=== PATIENT | male | born 1990 | race Two or more races ===

== ENCOUNTER 2024-07-27 08:07 | Emergency (ER) | payer BC, SELFPAY ==
--- OUTSIDE RECORDS SUMMARY | 2024-07-27 08:09 | XMS_ITS | Clinical Summary ---
Author Organization [facility] Address [address] [place] [id number] Care Team Providers Care Combination Machine Tool Setter Name Role Phone Unknown, Notinfile Unavailable Unavailable Hyacinht Hong MD Primary Care Provider Lanette Costa MD Unavailable [phone] Allergies No known active allergies Medications HYDROcodone-acet aminophen (NORCO) 5-325 mg per tabletIndication s:Pain Take 1 tablet by mouth every 8 (eight) hours as needed for pain 12 tablet 02/01/2024 Active Active Problems Problem Noted Date Diagnosed Date Abdominal pain 01/29/2024 Acute pancreatitis 01/29/2024 Social History Tobacco Use Types Packs/Day Years Used Date Smoking Tobacco: Never Smokeless Tobacco: Never Tobacco Cessation:Counseling Given: No C Utilities Answer Date Recorded In the past 12 months has [employer], gas, oil, or water [employer] threatened to shut off services in your home? No 01/30/2024 Social Connection and Isolat ion Panel [NHANES] Answer Date Recorded In a typical week, how many times do you talk on the phone with family, friends, or neighbors? More than three times a week 01/30/2024 How often do you get togethe r with friends or relatives? More than three times a week 01/30/2024 How often do you attend chur ch or oriental orthodox services? Never 01/30/2024 Do you belong to any clubs o r organizations such as jewish groups, unions, fraternal or athletic groups, or school groups? No 01/30/2024 How often do you attend meet ings of the clubs or organizations you belong to? Never 01/30/2024 Are you , , di vorced, , never , or living with a partner? 01/30/2024 Overall Financial Resource Strain (CARDIA) Answe r Date Recorded How hard is it for you to pa y for the very basics like food, housing, medical care, and heating? Not hard at all 01/30/2024 Hunger Vital Sign Answer Date Recorded Within the past 12 months, y ou worried that your food would run out before you got the money to buy more. Never true 01/30/20 24 Within the past 12 months, t he food you bought just didn't last and you didn't have money to get more. Never true 01/30/2024 PRAPARE - Transportation Answer Date Re corded In the past 12 months, has l ack of transportation kept you from medical appointments or from getting medications? No 01/16 In the past 12 months, has l ack of transportation kept you from meetings, work, or from getting things needed for daily living? No 01/30/2024 Housing Stability Vital Sign Answer Austin e Recorded In the last 12 months, was t here a time when you were not able to pay the mortgage or rent on time? No 01/30/2024 In the past 12 months, how m any times have you moved where you were living? 0 01/30/2024 At any time in the past 12 m [facility], were you homeless or living in a jail (including now)? No 01/30/2024 Personal Safety Answer Date Recorded Have you ever been in or are you currently in a harmful physical or emotional relationship or is someone making you feel afraid or unsafe? 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 Gender Identity Male 01/29/2024 11:27 AM CDT Sexual Orientation Not on file Obstetrics History Last Filed Vital Signs Vital Sign Reading Time Taken Comments Blood Pressure 140/77 02/01/2024 7:37 AM CDT Pulse 65 02/01/2024 7:37 AM CDT Temperature 36.4 C (97.5 F) 02/01/2024 7:37 AM CDT Respiratory Rate 20 02/01/2024 7:37 AM CDT Oxygen Saturation 97% 02/01/2024 7:37 AM CDT Inhaled Oxygen Concentration - - Weight 165.6 kg (365 lb 1.3 oz) 02/01/2024 4:34 AM CDT Height 180.3 cm (5' 11 ) 01/29/2024 9:01 PM CDT Body Mass Index 50.92 01/29/2024 9:01 PM CDT Plan of Treatment Health Maintenance Due Date Last Done Comments Depression Screening 1989 Hepatitis C Screening 1989 DTaP/Tdap/Td Vaccine (2 - Tdap) 2000 06/05/1994 Varicella Vaccines (1 of 2 - 13+ 2-dose series) 2002 Hepatitis B Screening 2007 Regular Well Visit/Exam 18-64 2007 Covid-19 Vaccine (3 - 2023-2 5 season) 2024 09/20/2020, 08/29/2020 Influenza Vaccine (#1) 2024 HPV Vaccines Aged Out No longer eligi ble based on patient's age to complete this topic Pneumococcal vaccine <65 Aged Out No longer eligible based on patient's age to complete this topic Insurance [employer] OOS [employer] OOS [employer] ACCESS OOS BLUE ACCESS OOS Advance Directives For more information, please contact: [phone] * Full Code (Latest Code Status on File) Date Activated Date Inactivated Comments 01/29/2024 8:36 PM 02/01/2024 7:35 PM Care Teams Combination Machine Tool Setter Relationship Specialty Start Date End Date Hyacinth Hong MD [address] [address] PCP - General Family Medicine 01/29/24 Unknown, Notinfile 02/06/22 Lanette Costa MD [address] [place] [address] Consulting Physician Gastroenterology 02/01/24
--- OUTSIDE RECORDS SUMMARY | 2024-07-27 08:09 | XMS_ITS | Referral Summary ---
Author Organization [facility] Address [address] [place] [phone] Care Team Providers Care Drencher Name Role Phone Unknown, Notinfile Unavailable Unavailable Hyacinth Hong MD Primary Care Provider Lanette Costa MD Unavailable [phone] Allergies No known active allergies Medications HYDROcodone-acet [...] Recorded In the past 12 months has [employer], gas, oil, or water [employer] threatened to shut off services in your [...] often do you attend chur ch or jehovah's witness services? Never 01/30/2024 Do you belong to any clubs o r organizations such as judaism groups, unions, fraternal or athletic groups, or [...] any time in the past 12 m onths, were you homeless or living in a care home (including now)? No 01/30/2024 Personal Safety Answer Date Recorded Have you ever been in or are you currently in a harmful physical or emotional relationship or is someone making you feel afraid or unsafe? 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 Gender Identity Male 01/29/2024 11:27 AM CDT Sexual Orientation Not on file Last Filed Vital Signs Vital Sign Reading [...] 01/29/2024 9:01 PM CDT Plan of Treatment Not on file Insurance [employer] OOS [employer] OOS [employer] OOS BLUE ACCESS OOS Advance Directives For more information, please contact: [phone] * Full Code (Latest Code Status on File) Date Activated Date Inactivated Comments 01/29/2024 8:36 PM 02/01/2024 7:35 PM Care Teams Drencher Relationship Specialty Start Date End Date Hyacinth Hong MD [address] [place] [address] PCP - General Family Medicine 01/29/24 Unknown, Notinfile 02/06/22 Lanette Costa MD [address] [place] [address] Consulting Physician Gastroenterology 02/01/24
[2024-07-27 08:20] VITALS: BP 119/72; PULSE 77; RESP 18; TEMP 36.4; O2SAT 99
--- NOTE | 2024-07-27 08:27 | ED_ITS ---
HPI - General Adult General Chief complaint: Upper Respiratory Infection Stated complaint: congestion and throat pain Time Seen by Provider: 07/27/24 08:28 Source: patient Mode of arrival: ambulatory Limitations: no limitations History of Present Illness HPI narrative: Ash is a 33-year-old male complains of sore throat for the last 1 and half weeks. He reports multiple sick contacts at home. Reports no diagnosis of flu strep or COVID in home. Reports family is all on antibiotics for their current illness. He complains of congestion sore throat drainage down the back of the throat and a dry cough at times. He denies ear popping, ear pain, nausea, vomiting, diarrhea, headache, and fevers or any other concerns today. All systems reviewed and negative except as noted above. Related Data Home Medications ?Medication ?Instructions ?Recorded ?Confirmed ?Last Taken ?Type omeprazole 20 mg capsule,delayed 20 mg PO DAILY 02/22/24 Unknown History release Allergies Allergy/AdvReac Type Severity Reaction Status Date / Time No Known Allergies Allergy Verified 07/27/24 08:24 Review of Systems Review of Systems: CONSTITUTIONAL: Denies fever, chills, or sweats. EYES: Denies visual changes, redness, or discharge. ENT: reports rhinorrhea, congestion, and sore throat. denies otalgia. CARDIOVASCULAR: Denies chest pain, palpitations, or edema. RESPIRATORY: reports cough. denies dyspnea. GASTROINTESTINAL: Denies abdominal pain, nausea, vomiting, or diarrhea. GENITOURINARY: Denies dysuria or hematuria. SKIN: Denies rash or itching. MUSCULOSKELETAL: Denies back pain, joint pain, or myalgia. NEUROLOGIC: Denies headache, numbness, or weakness. PSYCHIATRIC: Denies anxiety or depression. All other systems reviewed are negative, except as documented in HPI. 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 Discoloration of skin Family History Family History Father Diabetes mellitus Hypertension Social History Social History Social History: Smoking status: Never smoker Second hand tobacco smoke exposure: No Alcohol intake: current Alcohol use details: Occasionally Substance use: never Substance use type: does not use Do You Feel Safe in your Home?: Yes Lack of Transportation: No Lack of Food: Never True Current Housing: I Have Housing Concerned About Future Housing: No Difficulty Paying Gas/Electric Bills: No Difficulty Paying for Meds: No Currently Unemployed: No Education: Don't Know Difficulty w/ Childcare or Family Care: No Living arrangements: with family Occupation/Education: occupation Gender identity (if verbalized by the patient): Male Sexual Orientation (if Verbalized by the Patient): Straight or Heterosexual Spiritual care concerns: No Agree to blood products: Yes Exam Narrative: GENERAL: This is a well-nourished, well-developed patient, in no apparent distress. HEAD: normocephalic, atraumatic. EYES: Sclera clear/white. Vision is grossly intact. EARS: Bilateral EAC erythematous; Right TM erythematous and edematous with visible fluid. Hearing grossly intact. NOSE: External nose normal with no obvious nasal discharge. nares with redness, edema, and rhinorrhea. THROAT: Mucous membranes moist, posterior pharynx erythematous. NECK: Neck supple, non-tender without lymphadenopathy, masses or thyromegaly. CARDIOVASCULAR: Regular rate and rhythm without murmurs, gallops, or rubs. RESPIRATORY: Clear to auscultation. Breath sounds equal bilaterally. No wheezes, rales, or rhonchi. SKIN: warm, Dry, intact with no suspicious lesions or rash, good texture and turgor. NEURO: awake, alert, and oriented to person, place and time. There were no obvious focal neurologic abnormalities. EXTREMITIES: No joint tenderness, effusion, or edema noted. Course Course Emergency Course: Patient is aware of diagnosis, understands and agrees to treatment plan. Anticipatory guidance given. Patient agrees to follow-up as directed and is aware of reasons to seek care at the emergency department. This report may have been done utilizing a voice recognition system. Attempts have been made to correct errors. However, there may be uncorrected grammatical, spelling, and recognition errors present. Level of Care: Express Care Visit Vital Signs Vital signs: Vital Signs Temperature 36.4 C L 07/27/24 08:20 Pulse Rate 77 07/27/24 08:20 Respiratory Rate 18 07/27/24 08:20 Blood Pressure 119/72 07/27/24 08:20 Pulse Oximetry 99 07/27/24 08:20 Oxygen Delivery Room Air 07/27/24 08:20 Temperature 36.4 C L 07/27/24 08:20 Pulse Rate 77 07/27/24 08:20 Respiratory Rate 18 07/27/24 08:20 Blood Pressure 119/72 07/27/24 08:20 Pulse Oximetry 99 07/27/24 08:20 Oxygen Delivery Room Air 07/27/24 08:20 Reviewed. Medical Decision Making MDM Narrative Medical decision making narrative: Patient with history of sore throat x 1.5 weeks. Patient with congestion, sore throat, and cough at times. His strep test was negative today. On exam his right TM was erythematous. Reviewed exam findings with patient. He was diagnosed with right otitis media and treated with antibiotics. He is stable and in no acute distress. advise supportive measures and signs and symptoms to go to the emergency room. Patient is appropriate for outpatient treatment and follow-up. Differential Diagnosis Differential Diagnosis: Strep vs viral pharyngitis vs URI vs ear infection Vital Signs Vital Signs: Vital Signs Temperature 36.4 C L 07/27/24 08:20 Pulse Rate 77 07/27/24 08:20 Respiratory Rate 18 07/27/24 08:20 Blood Pressure 119/72 07/27/24 08:20 Pulse Oximetry 99 07/27/24 08:20 Oxygen Delivery Room Air 07/27/24 08:20 Temperature 36.4 C L 07/27/24 08:20 Pulse Rate 77 07/27/24 08:20 Respiratory Rate 18 07/27/24 08:20 Blood Pressure 119/72 07/27/24 08:20 Pulse Oximetry 99 07/27/24 08:20 Oxygen Delivery Room Air 07/27/24 08:20 Reviewed Lab Data Labs: Lab Results 07/27/24 Range/Units 08:29 POC Grp A Strep Screen Negative (Negative) Discharge Plan Discharge Clinical Impression: Otitis media Qualifiers: Otitis media type: suppurative Chronicity: acute Laterality: right Recurrence: non-recurrent Spontaneous tympanic membrane rupture: without spontaneous rupture Qualified Code(s): H66.001 - Acute suppurative otitis media without spontaneous rupture of ear drum, right ear Upper respiratory infection Qualifiers: URI type: acute pharyngitis Pharyngitis/tonsillitis etiology: unspecified etiology Qualified Code(s): J02.9 - Acute pharyngitis, unspecified Patient Disposition: Home, Self-Care Condition: Stable Instructions: Antibiotic Form, Pharyngitis (ED), Ear Infection (ED) Additional Instructions: You were diagnosed with a right ear infection today and pharyngitis. Follow printed instructions. You may continue your aeuw-fnw-hzsabhi medications for symptoms including Tylenol and ibuprofen as directed on the packaging. Take medications as prescribed. Follow-up with your primary care provider. Patient Language: Mohawk Prescriptions: New amoxicillin-pot clavulanate 875-125 mg tablet 1 tablet PO Q12H Qty: 14 0RF benzonatate 200 mg capsule 200 mg PO TID PRN (Reason: cough) Qty: 30 0RF No Action omeprazole 20 mg capsule,delayed release(DR/EC) 20 mg PO DAILY Follow-up/Referrals: UNKNOWN,DOCTOR [Primary Care Provider] - Time of Disposition: 08:42
[2024-07-27 08:31] LABS: EDSTREPNEGPOS1 Negative (Negative)
== END 2024-07-27 08:56 | disposition home or self-care (01) ==
PROVIDERS: Emergency Provider Nurse Practitioner
DX: H66.001 Acute suppurative otitis media without spontaneous rupture of ear drum, right ear (principal); J02.9 Acute pharyngitis, unspecified; E66.01 Morbid (severe) obesity due to excess calories; E03.9 Hypothyroidism, unspecified; M47.22 Other spondylosis with radiculopathy, cervical region; Z83.3 Family history of diabetes mellitus
CPT/HCPCS: 87081; 87880; 99213; G0463

== ENCOUNTER 2024-11-02 08:46 | Emergency (ER) | payer BC, SELFPAY ==
--- NOTE | 2024-11-02 08:48 | ED_ITS ---
HPI - Ear Problem General Chief complaint: Upper Respiratory Infection Stated complaint: right side mouth and ear pain Time Seen by Provider: 11/02/24 08:48 Source: patient Mode of arrival: ambulatory Limitations: no limitations History of Present Illness HPI Narrative: Ash is a 34-year-old male patient presenting to the clinic today with complaints of right-sided mouth and ear pain x4 days. He reports no fevers, chills, body aches. Denies any runny nose cough or congestion. States that the pain is worse when he swallows and radiates into the right ear. Has had strep exposure last week. Denies any chest pain or shortness of breath. Related Data Home Medications Medication Instructions Recorded Confirmed Last Taken Type pantoprazole 40 mg tablet,delayed mg PO 11/02/24 Unknown History release Allergies Allergy/AdvReac Type Severity Reaction Status Date / Time No Known Allergies Allergy Verified 11/02/24 08:48 Review of Systems Review of Systems: Pertinent positives per HPI. Patient denies any fever, chills, rash, headache, visual changes, dizziness, cough, shortness of breath, chest pain, palpitations, nausea, vomiting, diarrhea, constipation, abdominal pain, or any urinary issues. [facility] Past Medical History Medical History Morbid (severe) obesity due to excess calories FHx: diabetes mellitus Dermatitis Acquired hypothyroidism Cervical spondylosis with radiculopathy Screening cholesterol level Chronic pruritic rash in adult Discoloration of skin Family History Family History Father Diabetes mellitus Hypertension Social History Social History Social History: Smoking status: Never smoker Second hand tobacco smoke exposure: No Alcohol intake: current Alcohol use details: Occasionally Substance use: never Substance use type: does not use Do You Feel Safe in your Home?: Yes Lack of Transportation: No Lack of Food: Never True Current Housing: I Have Housing Concerned About Future Housing: No Difficulty Paying Gas/Electric Bills: No Difficulty Paying for Meds: No Currently Unemployed: No Education: Don't Know Difficulty w/ Childcare or Family Care: No Living arrangements: with family Occupation/Education: occupation Gender identity (if verbalized by the patient): Male Sexual Orientation (if Verbalized by the Patient): Straight or Heterosexual Spiritual care concerns: No Agree to blood products: Yes Comments At the time of my signature, I reviewed and agree with the nursing past medical, surgical, social, and family history. There is no relevant family history pertinent to the patient complaint. Exam Narrative: General: Well-developed, morbidly obese, in no apparent distress Head: Normocephalic, atraumatic Eyes: Pupils equally round and reactive to light bilaterally, EOM intact, sclera and conjunctive clear, no discharge, lids normal Ears: TMs intact and congested, ear canals clear, no drainage, grossly hearing normal. Nose: Nares patent, no discharge, no inflammation, no sinus tenderness. Mouth: Oral pharynx mildly red without lesions or masses, good dentition, MMM. Neck: Supple, trachea midline, no enlargement of anterior or posterior cervical nodes, no thyroid masses or goiter palpable. Cardio: Regular rate and rhythm, s1 and s2 normal, no murmur appreciated. Resp: Clear to auscultation bilaterally, no rhonchi, rales, wheezing or rubs Course Course Emergency Course: Portions of this record may have been created with voice recognition software. Level of Care: Express Care Visit Vital Signs Vital signs: Vital Signs Temperature 36.6 C 11/02/24 08:55 Pulse Rate 99 11/02/24 08:55 Respiratory Rate 18 11/02/24 08:55 Blood Pressure 124/67 11/02/24 08:55 Pulse Oximetry 99 11/02/24 08:55 Oxygen Delivery Room Air 11/02/24 08:55 Temperature 36.6 C 11/02/24 08:55 Pulse Rate 99 11/02/24 08:55 Respiratory Rate 18 11/02/24 08:55 Blood Pressure 124/67 11/02/24 08:55 Pulse Oximetry 99 11/02/24 08:55 Oxygen Delivery Room Air 11/02/24 08:55 Vital signs reviewed Medical Decision Making MDM Narrative Medical decision making narrative: At the time of visit patient is resting comfortably on the exam table. Patient appears to be nontoxic. Labs: Strep test was performed and negative in the clinic today. We will send strep for culture.. Plan: I suspect patient has serous otitis/eustachian tube dysfunction/pharyngitis. Prescription for prednisone was sent to the pharmacy. Supportive measures were discussed with the patient and they voiced understanding discharge instructions and agrees to treatment plan. Return precautions reviewed Differential Diagnosis Differential Diagnosis: Otitis media, otitis externa, eustachian tube dysfunction, cerumen impaction, upper respiratory infection, serous otitis, TMJ, dental infection, dental pain, trigeminal neuralgia Vital Signs Vital Signs: Vital Signs Temperature 36.6 C 11/02/24 08:55 Pulse Rate 99 11/02/24 08:55 Respiratory Rate 18 11/02/24 08:55 Blood Pressure 124/67 11/02/24 08:55 Pulse Oximetry 99 11/02/24 08:55 Oxygen Delivery Room Air 11/02/24 08:55 Temperature 36.6 C 11/02/24 08:55 Pulse Rate 99 11/02/24 08:55 Respiratory Rate 18 11/02/24 08:55 Blood Pressure 124/67 11/02/24 08:55 Pulse Oximetry 99 11/02/24 08:55 Oxygen Delivery Room Air 11/02/24 08:55 Lab Data Labs: Lab Results 11/02/24 Range/Units 09:08 POC Grp A Strep Screen Negative (Negative) Discharge Plan Discharge Clinical Impression: Acute dysfunction of right eustachian tube, Pharyngitis, Acute serous otitis media, right ear Patient Disposition: Home Condition: Stable Instructions: Antibiotic Form, Pharyngitis (ED), Earache (ED), Fluid In The Ear (Serous Otitis Media) (ED) Additional Instructions: Strep test was negative in the clinic today. We will send strep for culture if this comes back positive we will contact him place you on antibiotics at that time Take prescription medications only as prescribed-prednisone Increase fluids and stay well hydrated Tylenol/motrin for pain/fever Flonase and OTC antihistamines as directed Vicks vapor rub to open sinuses Sinus rinses for congestion Cepacol spray, cough drops, throat lozenges, warm tea with honey/lemon, gargle salt water to soothe throat BRAT diet for diarrhea Clear liquids x 24 hours then advance as tolerated for nausea/vomiting Go to the ED if you develop a worsening in your condition- high fever not controlled by Tylenol or Motrin, dehydration, weakness, lethargy, shortness of breath, or chest pain. Follow up with your PCP in 3-5 days if symptoms persist. Patient Language: Sinhala Prescriptions: New prednisone 20 mg tablet 40 mg PO DAILY 5 Days Qty: 10 0RF No Action pantoprazole 40 mg tablet,delayed release (DR/EC) PO Follow-up/Referrals: UNKNOWN,DOCTOR [Non-Staff] - Time of Disposition: 09:10 Quality NIHSS Nursing Documentation ED NIHSS nursing documentation: reviewed/agree
--- OUTSIDE RECORDS SUMMARY | 2024-11-02 08:48 | XMS_ITS | Clinical Summary ---
Author Organization [facility] Address [address] [place] [id number] Care Team Providers Care Forest Firefighter Name Role Phone Unknown, Notinfile Unavailable Unavailable Hyacinth Hong MD Primary Care Provider Lanette Costa MD Unavailable [phone] Allergies No known active allergies Medications HYDROcodone-acet [...] Recorded In the past 12 months has [employer], gas, oil, or water [employer] threatened to shut off services in your [...] often do you attend chur ch or judaism services? Never 01/30/2024 Do you belong to any clubs o r organizations such as caodaism groups, unions, fraternal or athletic groups, or [...] any time in the past 12 m [facility], were you homeless or living in a [facility] (including now)? No 01/30/2024 Personal Safety Answer Date Recorded Have you ever been in or are you currently in a harmful physical or emotional relationship or is someone making you feel afraid or unsafe? 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 Gender Identity Male 01/29/2024 11:27 AM CDT [...] Regular Well Visit/Exam 18-64 2007 Covid-19 Vaccine ( - 2023-2 5 season) 2024 09/20/2020, 08/29/2020 Influenza Vaccine (Season Ended) 2025 HPV Vaccines Aged Out No longer eligi ble based on patient's age to complete this topic Pneumococcal vaccine <65 Aged Out No longer eligible based on patient's age to complete this topic Insurance [employer] OOS [employer] OOS [employer] ACCESS OOS BLUE ACCESS OOS Advance Directives For more information, please contact: [phone] * Full Code (Latest Code Status on File) Date Activated Date Inactivated Comments 01/29/2024 8:36 PM 02/01/2024 7:35 PM Care Teams Forest Firefighter Relationship Specialty Start Date End Date Hyacinth Hong MD [address] [address] PCP - General Family Medicine 01/29/24 Unknown, Notinfile 02/06/22 Lanette Costa MD [address] [place] [address] Consulting Physician Gastroenterology 02/01/24
--- OUTSIDE RECORDS SUMMARY | 2024-11-02 08:48 | XMS_ITS | Referral Summary ---
Author Organization [facility] Address [address] [place] [address] Care Team Providers Care Cryptologic Technician Technical Name Role Phone Unknown, Notinfile Unavailable Unavailable Hyacinth Hong MD Primary Care Provider Lanette Csota MD Unavailable Allergies No known active allergies Medications HYDROcodone-acet [...] Recorded In the past 12 months has [employer], gas, oil, or water [employer] threatened to shut off services in your [...] often do you attend chur ch or jewish services? Never 01/30/2024 Do you belong to any clubs o r organizations such as roman catholic groups, unions, fraternal or athletic groups, or [...] were you homeless or living in a assisted (including now)? No 01/30/2024 Personal Safety Answer Date Recorded Have you ever been in or are you currently in a harmful physical or emotional relationship or is someone making you feel afraid or unsafe? 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 Gender Identity Male 01/29/2024 11:27 AM CDT [...] Plan of Treatment Not on file Insurance [employer] OOS [employer] OOS [employer] O[employer] BLUE ACCESS OOS Advance Directives For more information, please contact: [phone] * Full Code (Latest Code Status on File) Date Activated Date Inactivated Comments 01/29/2024 8:36 PM 02/01/2024 7:35 PM Care Teams Cryptologic Technician Technical Relationship Specialty Start Date End Date Hyacinth Hong MD [address] [place] [address] PCP - General Family Medicine 01/29/24 Unknown, Notinfile 02/06/22 Lanette Costa MD [address] [place] [address] Consulting Physician Gastroenterology 02/01/24
[2024-11-02 08:55] VITALS: BP 124/67; PULSE 99; RESP 18; TEMP 36.6; O2SAT 99
[2024-11-02 09:10] LABS: EDSTREPNEGPOS1 Negative (Negative)
== END 2024-11-02 09:10 | disposition home or self-care (01) ==
PROVIDERS: Emergency Provider Nurse Practitioner Family
DX: H69.91 Unspecified Eustachian tube disorder, right ear (principal); J02.9 Acute pharyngitis, unspecified; H65.01 Acute serous otitis media, right ear; E03.9 Hypothyroidism, unspecified; E66.01 Morbid (severe) obesity due to excess calories; Z68.42 Body mass index [BMI] 45.0-49.9, adult; M47.22 Other spondylosis with radiculopathy, cervical region
CPT/HCPCS: 87081; 87880; 99213; G0463

== ENCOUNTER 2025-06-07 10:09 | Emergency (ER) | payer BC, SELFPAY ==
[2025-06-07 10:33] VITALS: BP 111/49; PULSE 68; RESP 18; TEMP 36.2; O2SAT 100
--- NOTE | 2025-06-07 10:42 | ED_ITS ---
HPI - URI/Sore Throat General Chief Complaint: Upper Respiratory Infection Stated Complaint: ear/URI patient presents to the [facility] with complaints of nasal congestion, nasal drainage, sinus pain, headaches, and productive cough that began about 2-3 weeks ago. Patient reports this is not uncommon for him and has been using over-the- counter cough cold medication. It is over the last several days has noticed some significant pain in the right ear and occasionally in left ear. Has had ear infections in the past and thought he should be evaluated. Denies drainage from ears, fever, chills, body aches, dizziness, shortness of breath, nausea, vomiting, diarrhea. Related Data Home Medications ?Medication ?Instructions ?Recorded ?Confirmed ?Last Taken ?Type pantoprazole 40 mg tablet,delayed 40 mg PO DAILY 01/1403/11/25 Unknown History release Allergies Allergy/AdvReac Type Severity Reaction Status Date / Time No Known Allergies Allergy Verified 06/07/25 10:32 Review of Systems Constitutional: Constitutional: Reports as per HPI, Denies chills, Denies fatigue, Denies fever(s) and Denies weakness Eyes: Eyes: Reports no additional eye complaints ENT: Reports as per HPI, Denies vertigo, Denies dizziness, Reports nasal congestion and Denies sore throat Comments: Bilateral ear pain, sinus pain Cardiovascular: Cardiovascular: Reports no additional cardiovascular complaints Respiratory: Respiratory: Reports as per HPI, Reports chest congestion, Reports cough, Denies dyspnea and Denies wheezing Gastrointestinal: Gastrointestinal: Reports as per HPI, Denies abdominal pain, Denies diarrhea, Denies nausea and Denies vomiting Genitourinary: Genitourinary: Reports no additional male genitourinary complaints Musculoskeletal: Musculoskeletal: Reports as per HPI, Denies back pain and Denies myalgias Integumentary/Breasts: Skin/Breast: Reports as per HPI, Denies erythema, Denies rash and Denies skin ulcer Neurologic: Reports as per HPI, Denies vertigo, Denies dizziness, Reports headache(s) and Denies weakness Psychiatric: Psychiatric: Reports no additional psychiatric complaints Endocrine: Endocrine: Reports no additional endocrine complaints Hematologic/Lymphatic: Hematologic/Lymphatic: Reports no additional hematologic/lymphatic complaints Allergic/Immunologic: Allergic/Immunologic: Reports as per HPI Comments: seasonal allergies PMFSH Past Medical History Medical History Morbid (severe) obesity due to excess calories FHx: diabetes mellitus Dermatitis Acquired hypothyroidism Cervical spondylosis with radiculopathy Screening cholesterol level Chronic pruritic rash in adult Discoloration of skin Family History Family History Father Diabetes mellitus Hypertension Social History Social History Social History: Smoking status: Never smoker Second hand tobacco smoke exposure: No Alcohol intake: current Alcohol use details: Occasionally Substance use: never Substance use type: does not use Lack of Transportation: No Lack of Food: Never True Current Housing: I Have Housing Concerned About Future Housing: No Difficulty Paying Gas/Electric Bills: No Difficulty Paying for Meds: No Currently Unemployed: No Education: Don't Know Difficulty w/ Childcare or Family Care: No Living arrangements: with family Occupation/Education: occupation Gender identity (if verbalized by the patient): Male Sexual Orientation (if Verbalized by the Patient): Straight or Heterosexual Spiritual care concerns: No Agree to blood products: Yes Exam Const: General: healthy appearing and no acute distress Nutritional Appearance: well nourished Orientation/consciousness: patient oriented x3 Limitations: no limitations HENMT: Head: normal to inspection Ears: external ears normal and TM's a bnormal bilaterally ( significant erythema with dullness and loss of bony landmarks-B) Face/Nose/Sinus: Normal external nose present and Normal nares present Face and sinus: normal facial exam and sinus tenderness maxillary Mouth: Yes Normal oral and palatal mucosa present, Yes lip normal and Yes moist mucous membranes Throat: posterior oropharynx abnormal ( minimal erythema no edema or exudate) Neck: Neck: normal visual inspection and no lymphadenopathy Resp: Effort & Inspection: normal respiratory effort Auscultation: clear to auscultation bilaterally Cardio: Rate: regular rate Rhythm: regular rhythm Skin: General skin exam: normal color Rashes: no rashes Wounds: no wounds Neuro: General: patient oriented x3 Speech: normal speech Gait exam (Neuro): Normal gait present Psych: Mental Status: mental status grossly normal Affect: normal affect Attitude: cooperative Course Course Level of Care: Express Care Visit Vital Signs Vital signs: Vital Signs Temperature 97.1 F L 06/07/25 10:33 Pulse Rate 68 06/07/25 10:33 Respiratory Rate 18 06/07/25 10:33 Blood Pressure 111/49 L 06/07/25 10:33 Pulse Oximetry 100 06/07/25 10:33 Oxygen Delivery Room Air 06/07/25 10:33 Temperature 97.1 F L 06/07/25 10:33 Pulse Rate 68 06/07/25 10:33 Respiratory Rate 18 06/07/25 10:33 Blood Pressure 111/49 L 06/07/25 10:33 Pulse Oximetry 100 06/07/25 10:33 Oxygen Delivery Room Air 06/07/25 10:33 MDM MDM Narrative Medical decision making narrative: bilateral ear infection with sinus infection The patient was evaluated by myself in the [facility]. History is obtained from patient who is an independent historian and physical exam was performed. Available medical records were reviewed at this time. Exam findings show no acute concerns or changes; patient is non-toxic appearing and is in no distress. Patient is appropriate for outpatient treatment and follow-up. I have evaluated and discussed social determinants of health with the patient that could potentially impact subsequent diagnosis and treatment plans. Differential diagnosis and treatment plan were discussed with the patient. Patient agrees with discussion and after shared medical decision making agrees with plan of care. All questions were answered to the patient's satisfaction. Differential Diagnosis Differential Diagnosis: Influenza, sinusitis, upper respiratory infection, COVID, strep, pharyngitis Medical Records I have reviewed the following patient records and this information was taken into consideration when formulating the assessment and plan.: previous labs, previous ER visits, previous hospitalizations and previous clinic visits Discharge Plan Discharge Clinical Impression: Sinusitis, Acute otitis media, bilateral Patient Disposition: Home Condition: Stable Instructions: Antibiotic Form, Ear Infection (ED) Additional Instructions: Take the antibiotics as directed for the entire course. Do not miss any doses. What you are taking antibiotics and is recommended to take a probiotic or have yogurt daily to return the good gut bacteria to your system. This can also help with acute diarrhea while taking antibiotics. It can take 24-48 hours for the antibiotics to start to relieve your symptoms continue to take these medications to help with various symptoms: Tylenol or Motrin for pain, headache, or fever Flonase/fluticasone or Nasacort/triamcinolone nasal spray- helps with congestion and nasal drainage. Sudafed/pseudoephedrine helps with sinus pain and congestion. Caution with high blood pressure. Use a humidifier or vaporizer at night. Drink plenty of water. 8-10 glasses per day. Mucinex/guaifenesinas directed and be sure to take with 8oz of water. Warm compresses over the forehead and cheeks to promote sinus drainage. Return to urgent care or go to the ER for new or worsening symptoms. Follow up with Primary provider if not improved after 1 week. Patient Language: Bruneian Prescriptions: New amoxicillin-pot clavulanate 875-125 mg tablet 1 tablet PO Q12H Qty: 20 0RF No Action pantoprazole 40 mg tablet,delayed release (DR/EC) 40 mg PO DAILY Follow-up/Referrals: Kayode Kennedy MD [Primary Care Provider, Family Practice] Time of Disposition: 10:46
== END 2025-06-07 10:47 | disposition home or self-care (01) ==
PROVIDERS: Emergency Provider Nurse Practitioner Family; PCP Family Medicine
DX: J32.9 Chronic sinusitis, unspecified (principal); H66.93 Otitis media, unspecified, bilateral; E03.9 Hypothyroidism, unspecified; E66.01 Morbid (severe) obesity due to excess calories; M47.22 Other spondylosis with radiculopathy, cervical region
CPT/HCPCS: 99213; G0463